=== PATIENT | female | born 1995 | race Caucasian/White ===

== ENCOUNTER 2022-03-29 06:41 | Day surgery (SDC) | payer BC ==
[~2022-03-29 06:41] MED LIST: Lactated Ringers 1,000 ML IV SCH
[2022-03-29] MEDS ORDERED: Ondansetron 4 MG/2 ML SDV ONE ×2 (07:13→09:13)
[2022-03-29] MEDS ORDERED: Dexamethasone 4 MG/ML 5 ML MDV ONE (07:13)
[2022-03-29] MEDS ORDERED: Dexmedetomidine 200 MCG/2 ML SDV ONE (07:13)
[2022-03-29] MEDS ORDERED: Propofol 200 MG/20 ML SDV ONE ×2 (07:14→08:34)
[2022-03-29] MEDS ORDERED: fentaNYL 100 MCG/2 ML SDV ONE (07:14)
[2022-03-29] MEDS ORDERED: Scopolamine 1.5 MG Transdermal Patch TOP ONE (07:20)
[2022-03-29] MEDS ORDERED: Water For Injection, Sterile 20 ML ONE (07:26)
[2022-03-29] MEDS ORDERED: Iodine/Potassium Iodide 5% Solution 14 ML Bottle ONE (07:32)
[2022-03-29] MEDS ORDERED: Lidocaine 1% with EPINEPHrine 1:100,000 10 ML MDV ONE (07:33)
[2022-03-29] MEDS ORDERED: Ferric Subsulfate Topical Soln 8 GM (8 ML) Bottle ONE (07:33)
[2022-03-29 07:34] LABS: CARBON DIOXIDE,CO2 26.1 mmol/L (21.0-32.0); POTASSIUM,K 3.7 mmol/L (3.5-5.1)
[2022-03-29] MEDS ORDERED: Ondansetron 4 MG/2 ML SDV IVPUSH PRN (08:05)
[2022-03-29] MEDS ORDERED: Naloxone 0.4 MG/ML SDV IVPUSH PRN (08:05)
[2022-03-29] MEDS ORDERED: HYDROmorphone 1 MG/ML Syringe IVPUSH PRN (08:05)
[2022-03-29] MEDS ORDERED: Morphine 2 MG/ML SYRINGE IVPUSH PRN (08:05)
[2022-03-29] MEDS ORDERED: Metoclopramide 10 MG/2 ML SDV IVPUSH PRN (08:05)
[2022-03-29] MEDS ORDERED: Albuterol 0.083% 2.5 MG/3 ML Neb Soln NEB PRN (08:05)
[2022-03-29] MEDS ORDERED: fentaNYL 50 MCG/ML SDV IVPUSH PRN (08:05)
[2022-03-29] MEDS ORDERED: ePHEDrine 50 MG/ML SDV ONE (09:13)
[2022-03-29] MEDS ORDERED: Acetaminophen/oxyCODONE 325-5 MG Tab PO ONE (10:21)
== END 2022-03-29 09:59 | disposition home or self-care (01) ==
LOC: MW.SDS 06:41
PROVIDERS: ATTEND Obstetrics & Gynecology
DX: D06.1 Carcinoma in situ of exocervix (principal); G43.909 Migraine, unspecified, not intractable, without status migrainosus; Z79.899 Other long term (current) drug therapy; Z98.890 Other specified postprocedural states
CPT/HCPCS: 36415; 57460; 80053; 81025; 85027; A9270; J0131; J1100; J2405; J2704; J3010; J7120; 00940; J3490